=== PATIENT | male | born 2005 | race Caucasian/White ===

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

== ENCOUNTER 2023-03-08 09:58 | Emergency (ER) | payer OTHER, SELFPAY ==
[2023-03-08 09:59] VITALS: BP 163/111; PULSE 89; RESP 16; TEMP 36.3; O2SAT 98; BMI 16.7
--- NOTE | 2023-03-08 10:36 | ED.VIS.GI ---
HPI HPI - GI History of Present Illness Chief Complaint: Nausea/Vomiting/Diarrhea Informant: patient Abdominal Pain/Flank Pain Onset: Days Context: Gradual Onset Timing: Intermittent Nausea/Vomiting/Emesis GI Symptom: Positive for Nausea and Vomiting Onset: Days Quality: Positive for Nonbilious Severity: Mild Diarrhea/Melena/Hematochezia GI Symptom: Positive for Diarrhea; Negative for Melena or Hematochezia Onset: Days Stool Quality: Positive for Loose Severity: Mild Associated Symptoms Associated Symptoms: Negative for Dysuria, Frequency or Hematuria Narrative Narrative: 17-year-old male no signet past medical or surgical history. States that he had nausea and vomiting and diarrhea since Sunday. Has been intermittent. No hematemesis or melena. No fever. No dysuria. Says he today feels little bit dizzy. He is able to hold down fluids. But states he believes he may be somewhat dehydrated. Really denies any significant abdominal pain. No recent hospitalizations. Prior similar symptoms: Yes Recent Illness/Hospitalization: No PFSH PFSH Medical History Asthma Home Medications dicyclomine 10 mg capsule 20 mg (2 x 10 mg) PO TIDAC ##20 03/21/18 [Rx Last Taken Unknown] omeprazole 20 mg capsule,delayed release 20 mg PO DAILY ##30 03/21/18 [Rx Last Taken Unknown] ondansetron 4 mg disintegrating tablet 4 mg PO Q8H PRN PRN Nausea #10 tabs 03/21/18 [Rx Last Taken Unknown] albuterol sulfate 90 mcg/actuation aerosol inhaler 1 - 2 puff inhalation Q4H PRN PRN Wheezing ##1 11/24/18 [Rx Last Taken Unknown] prednisone 20 mg tablet 40 mg (2 x 20 mg) PO DAILY #10 tabs 11/24/18 [Rx Last Taken Unknown] clindamycin HCl 300 mg capsule 300 mg PO Q6H #40 caps 01/03/20 [Rx Last Taken Unknown] naproxen 500 mg tablet (Naprosyn) 500 mg PO BID PRN pain #20 tabs 07/30/22 [Rx Last Taken Unknown] tizanidine 4 mg capsule 4 mg PO QHS PRN muscle spasticity #7 caps 07/30/22 [Rx Last Taken Unknown] ondansetron 4 mg disintegrating tablet 4 mg PO Q6H PRN nausea and vomiting #7 tabs 03/08/23 [Rx Last Taken Unknown] Allergy/AdvReac Type Severity Reaction Status Date / Time No Known Allergies Allergy Verified 03/08/23 09:59 Social History Smoking Status: Current every day smoker tobacco type: cigarettes and cigars ROS ROS ED ROS Narrative Nausea, vomiting and diarrhea. Review of Systems ROS Unobtainable: Denies due to encephalopathy Constitutional Constitutional ED: Denies chills or fever(s) ENT ENT ED: Denies ear pain Cardiovascular Cardiovascular: Denies chest pain Respiratory/Chest Respiratory/Chest: Denies cough or dyspnea Gastrointestinal Gastrointestinal: Reports diarrhea, nausea and vomiting; Denies abdominal pain, constipation or melena Genitourinary Genitourinary ED: Denies dysuria or hematuria Musculoskeletal Musculoskeletal: Denies arthralgias or back pain Integumentary Denies abscess Neurologic Neurologic: Denies headache(s) Psychiatric Psychiatric: Denies anxiety or depression Endocrine Endocrinology: Denies polydipsia Hematologic/Lymphatic Hematologic/Lymphatic: Denies easy bleeding or easy bruising Allergic/Immunologic Allergic/Immunologic ED: Denies mouth swelling, tongue swelling or urticaria EXAM Physical Exam Narrative Exam Narrative: Well-appearing 17-year-old male. Vital signs are stable afebrile. Pulse ox 98% on room air no hypoxia. H EENT exam mild dry mucous membranes. Pupils round react to light. No facial droop. No trauma. Neck nontender no meningismus. No lymphadenopathy. Lungs clear to auscultation bilaterally. Heart regular rhythm rate about 90 no murmur. Chest wall and ribs nontender. Abdomen soft nontender. No hernia or mass. No distention. No right upper or right lower quadrant tenderness. Back nontender. Moving all 4 extremities. Nontender no edema. Normal manager telemetry strength. Normal dorsi plantarflexion. He is awake and alert. There is no focal motor deficits. Back is nontender. Const Vital Signs: 03/08/23 09:59 Temperature 97.4 F L Temperature Source Temporal Pulse Rate 89 Respiratory Rate 16 Blood Pressure 163/111 H Blood Pressure Mean 128 Pulse Ox 98 Oxygen Delivery Method Room Air Positive well nourished and well developed; Negative for cachectic, contractures or unkempt General Appearance ED: well developed and NAD; Negative for unkempt, cachectic, contractures or pallor Nutritional Appearance: Negative for cachectic HEENT Reports dry mucous membranes; Denies moist mucous membranes normocephalic and atraumatic; Negative for trauma or tenderness Mouth ED: Yes dry mucous membranes Mouth: dry mucous membranes Eyes PERRL and EOMs intact bilaterally General Eye ED: Negative for pale conjunctiva, scleral icterus or other Neck no lymphadenopathy, supple and no JVD General: Negative for tenderness Lymph Lymphatic: Negative for other Resp normal respiratory effort and clear to auscultation bilaterally Effort and Inspection: Negative for respiratory distress Auscultation: Negative for rales, rhonchi or wheezes Cardio regular rate, regular rhythm, S1 normal heart sound, S2 normal heart sound and no murmurs Rate: Negative for bradycardia or tachycardic Rhythm: Negative for abnormal rhythm GI non-tender, non-distended and no masses Inspection: Negative for abdominal distention Auscultation: normoactive bowel sounds Palpation: soft; Negative for tender, guarding, rigid, hepatomegaly, splenomegaly, hernia, mass, pulsatile mass or rebound tenderness present Back/Spine no CVA tenderness General Back: Negative for CVA tenderness Cervical Spine: Negative for cervical spine tenderness Thoracic Spine / Upper Back: Negative for thoracic spinal tenderness Lumbar Spine / Lower Back: Negative for lumbar spinal tenderness Coccyx: Negative for other Extremity full ROM General Extremety ED: Negative for edema or tenderness General Extremity: Negative for edema Neuro CN's II-XII intact bilaterally and moves all extremities Sensorium / Orientation: alert, oriented to person, oriented to place and oriented to time; Negative for orientation impaired, confused, lethargic or stuporous Motor Exam: strength 5/5 throughout Psych mental status grossly normal and thought process normal Appearance: Negative for unkempt Attitude: No agitated Mood & Affect: Negative for depressed, anxious or tearful Skin no wounds General Skin Exam: Negative for jaundice or pallor Lesions: no lesions Rashes: no rashes Trauma: Negative for abrasion Nails: Negative for discolored MDM MDM MDM Narrative Medical decision making narrative: Nine 8-year-old male with nausea, vomiting diarrhea consistent with a viral gastroenteritis. Most likely mild dehydration. His abdomen is completely benign. I do not think he needs any imaging. Will be treated with IV fluids, IV Zofran and obtain a BMP. He does not have a bowel obstruction nor is a secondary to appendicitis nor cholecystitis. Repeat exam at 11:51 AM resting comfortably. Abdomen remains nontender and benign. He has been able to hold down p.o. fluids. Will be treated as a viral gastroenteritis. Discharged home with a prescription of Zofran as needed. Increase fluids and rest. Increase diet slowly as tolerated. Return if worse or follow-up as needed. History & Record Review Discussion w/independent historian: Patient Additional record(s) reviewed:: Prior inpatient record, Prior outpatient record, Prior ED visit and Prior labs Lab Data Attestation: I reviewed the patient's lab results. Lab results narrative: BMP shows no acute abnormality. Gap of 2. Normal BUN of 10 creatinine 0.8. Glucose 96. Labs: Laboratory Results - last 24 hr 03/08/23 10:20 Sodium 139 Potassium 3.9 Chloride 107 Carbon Dioxide 30.0 Anion Gap 2 L BUN 10 Creatinine 0.86 Estim Creat Clear Calc 115.23 Est GFR (MDRD) Af Amer 145 Est GFR (MDRD) Non-Af 120 BUN/Creatinine Ratio 11.6 Glucose 96 Calcium 9.7 Discharge Plan Triage Chief Complaint: Nausea/Vomiting/Diarrhea ED Provider: Matthew Cortez Dx/Rx/DC Orders Clinical Impression: Viral gastroenteritis Instructions: Viral Gastroenteritis Prescriptions: New ondansetron 4 mg tablet,disintegrating 4 mg PO Q6H PRN (Reason: nausea and vomiting) Qty: 7 0RF No Action dicyclomine 10 MG capsule 20 mg PO TIDAC Qty: 20 0RF ondansetron 4 MG tablet 4 mg PO Q8H PRN PRN (Reason: Nausea) Qty: 10 0RF omeprazole 20 MG capsule 20 mg PO DAILY Qty: 30 0RF prednisone 20 MG tablet 40 mg PO DAILY Qty: 10 0RF Rx Instructions: With food albuterol sulfate 1 INHALER inhaler 1 - 2 puff inhalation Q4H PRN PRN (Reason: Wheezing) Qty: 1 0RF clindamycin HCl 300 MG capsule 300 mg PO Q6H Qty: 40 0RF naproxen [Naprosyn] 500 mg tablet 500 mg PO BID PRN (Reason: pain) Qty: 20 0RF tizanidine 4 mg capsule 4 mg PO QHS PRN (Reason: muscle spasticity) Qty: 7 0RF Primary Care Provider: Care PhysicianDominique Primary Referrals: Jose Zhao MD [Med Staff - Active Staff] - 3-5 Days if not improving Care Physician,No Primary [Primary Care Provider] - Activity Restrictions/Additional Instructions: Plenty of fluids and rest. Slowly increase diet as tolerated. Zofran as needed for nausea which you may swallow or let it dissolve under your tongue. Follow-up with primary care provider return if feeling worse. Disposition Disposition: Home, Self Care
[2023-03-08 10:50] LABS: Anion Gap 2 (5-15); BUN 10 mg/dL (7-18); BUN/Creat Ratio 11.6 RATIO (10-20); Calcium,Total 9.7 mg/dL (8.5-10.1); Chloride 107 mmol/L (98-107); Creatinine, Serum 0.86 mg/dL (0.70-1.30); EST Glomerular Filtration Rate 120 mL/min (>60); Est Glom Filt Rate - Afr Amer 145 mL/min (>60); Estimated Creatinine Clearance 115.23 ml/min; Glucose 96 mg/dL (74-106); Potassium 3.9 mmol/L (3.5-5.1); Sodium Level 139 mmol/L (136-145)
[2023-03-08] MEDS: 0.9% Normal Saline (1000mL) 1,000 ML 1000 ML IV (11:12)
[2023-03-08] MEDS: Ondansetron 4 MG/2 ML Vial IV (11:12)
[2023-03-08 11:59] VITALS: BP 118/63; PULSE 72; RESP 15; O2SAT 99
== END 2023-03-08 13:00 | disposition home or self-care (01) ==
PROVIDERS: Emergency Provider Emergency Medicine; Visit Provider Emergency Medicine
DX: A08.4 Viral intestinal infection, unspecified (principal); F17.210 Nicotine dependence, cigarettes, uncomplicated; F17.290 Nicotine dependence, other tobacco product, uncomplicated; E86.0 Dehydration
CPT/HCPCS: 80048; 96361; 96374; 99283; J7030; A4216; J2405

== ENCOUNTER 2024-01-04 13:38 | Emergency (ER) | payer OTHER, SELFPAY ==
[2024-01-04 13:39] VITALS: BP 171/109; PULSE 101; RESP 18; TEMP 36.8; O2SAT 99; BMI 34.2
--- NOTE | 2024-01-04 13:45 | RAD_ITS ---
STUDY: X-RAY - RIGHT ANKLE REASON FOR EXAM: Male, 18 year old. INJURY TECHNIQUE: 3 view(s) of the ankle. COMPARISON: None. FINDINGS: Normal visualized distal tibia and fibula. Normal medial and lateral malleoli. Normal tibiotalar articulation and ankle mortise. Normal visualized talus and calcaneus. The visualized subtalar, talonavicular, calcaneocuboid and tarsal articulations are normal. The soft tissue structures are unremarkable. RAD/Ankle min 3 Views IMPRESSION: Normal x-ray examination of the ankle. Electronically Signed: Gunnar Chou MD at 14:56 EDT ,
--- NOTE | 2024-01-04 15:06 | ED.VIS.LOWEX ---
HPI History of Present Illness Chief Complaint: Lower Extremity Injury Detail of Chief Complaint: Posterior right ankle pain Informant: patient Occured/Mechanism Mechanism/Context: Yes injury and Yes blunt trauma Comment: Foot went into a hole while running Onset/Context/Timing Onset: Hours Context: Sudden Onset Timing: Continuous Quality of Pain: Dull Location: Posterior right ankle Current Severity: Mild Maximum Severity: Moderate Worsened by: Palpation of the Achilles tendon Relieved by: Rest Associated Symptoms Associated Symptoms: Negative for Parasthesia, Weakness or Loss of Funtion Narrative Narrative: Patient is a 18-year-old male. He has no significant past medical history other than bronchospasm. He presents because of injury to the posterior right ankle. He was running. His foot went into a hole. He states he twisted. Complains of pain he localizes over the Achilles tendon. He denies pain over the lateral medial malleolus. [place] pain base of the fifth metatarsal. He denies paresthesia, anesthesia or motor weakness. Tetanus Immunization: <5 years Recent Illness/Hospitalization: No PFSH PFS Medical History Asthma Home Medications ?Medication ?Instructions ?Recorded ?Last Taken ?Type albuterol sulfate 90 mcg/actuation 1 - 2 puff inhalation Q4H PRN PRN 11/24/18 Unknown Rx aerosol inhaler Wheezing ##1 Allergy/AdvReac Type Severity Reaction Status Date / Time No Known Allergies Allergy Verified 03/08/23 09:59 Social History Smoking Status: Current every day smoker tobacco type: cigarettes and cigars ROS ROS ED Musculoskeletal Musculoskeletal: Reports other Details: Per HPI narrative ; Denies arthralgias, back pain, myalgias or neck pain Integumentary Denies rash Neurologic Neurologic: Denies paresthesias or weakness Hematologic/Lymphatic Hematologic/Lymphatic: Denies easy bleeding or easy bruising EXAM Physical Exam Const Vital Signs: 01/04/24 13:39 Temperature 98.2 F Temperature Source Oral Pulse Rate 101 H Respiratory Rate 18 Blood Pressure 171/109 H Blood Pressure Mean 129 Pulse Ox 99 Oxygen Delivery Method Room Air Positive well nourished and well developed Constitutional Narrative: Vital signs are marked for an elevated blood pressure 171/109. Patient is not have a history of hypertension. Patient's BMI is 34.2. General Appearance ED: well developed and NAD HEENT Reports moist mucous membranes normocephalic and atraumatic Eyes PERRL Eyes Narrative: Extract muscles are intact. Resp normal respiratory effort Cardio regular rate and regular rhythm Extremity normal to inspection and full ROM Extremity Narrative: There is pain outpatient over the right Achilles tendon. The tendon is functionally intact based on George test. There is no pain the patient of the lateral medial malleolus. There is no pain ovation over the base of the fifth metatarsal. Neuro oriented x3, CN's II-XII intact bilaterally and moves all extremities Sensorium / Orientation: alert Psych mental status grossly normal Skin no wounds Lesions: no lesions Rashes: no rashes MDM MDM MDM Narrative Medical decision making narrative: X-ray was ordered per nurse protocol. Differential diagnosis would be sprain, Achilles strain, fracture. Radiography Chest X-Ray - ED: Read by ED Physician (Three-view x-ray of the ankle was obtained and reveals no evidence of fracture, subluxation dislocation. The Achilles tendon appears normal.) Diagnostic Testing: Clinical Impression(s) from Imaging Studies Ankle X-Ray 01/04/24 13:45 IMPRESSION: Normal x-ray examination of the ankle. Electronically Signed: Gunnar Chou MD at 14:56 EDT , Discharge Plan Triage Chief Complaint: Lower Extremity Injury ED Provider: Epifanio Escobar Dx/Rx/DC Orders Clinical Impression: Strain of right Achilles tendon, initial encounter, Elevated blood-pressure reading without diagnosis of hypertension Instructions: ED Hypertension, To Be Confirmed, ED Muscle Strain, Extremity Prescriptions: No Action albuterol sulfate 1 INHALER inhaler 1 - 2 puff inhalation Q4H PRN PRN (Reason: Wheezing) Qty: 1 0RF Primary Care Provider: Care Physician,No Primary Referrals: Karen Chawla MD [Med Staff - Clinical Nursing Manager] - 1-2 Weeks Care Physician,No Primary [Primary Care Provider] - Activity Restrictions/Additional Instructions: 1. Apply ice 6-8 times a day 2. You may take 4 ibuprofen tablets every 8 hours or 2 Aleve tablets every 12 hours for next 3 to 5 days for pain 3. Your blood pressure is elevated for a 18-year-old. Since you do not have a doctor you were assigned to Dr. Karen Chawla. You need to have your blood pressure checked in 1 to 2 weeks. Print Language: Welsh Disposition Disposition: Home, Self Care
[2024-01-04 15:45] VITALS: BP 164/104; PULSE 89; RESP 16; TEMP 36.6; O2SAT 100
== END 2024-01-04 15:46 | disposition home or self-care (01) ==
PROVIDERS: Emergency Provider Emergency Medicine; Visit Provider Emergency Medicine
DX: S86.011A Strain of right Achilles tendon, initial encounter (principal); R03.0 Elevated blood-pressure reading, without diagnosis of hypertension; X58.XXXA Exposure to other specified factors, initial encounter; Y93.02 Activity, running; F17.210 Nicotine dependence, cigarettes, uncomplicated; F17.290 Nicotine dependence, other tobacco product, uncomplicated
CPT/HCPCS: 73610; 99282